=== PATIENT | male | born 1940 | race Caucasian/White ===

== ENCOUNTER → 2017-06-06 | Outpatient (CLI) | payer MEDICARE ==
[2017-06-06 08:51] LABS: BASO % 0.3 % (0.0-1.0); BILIRUBIN NEGATIVE (NEGATIVE); BLOOD NEGATIVE (NEGATIVE); CLARITY CLEAR (CLEAR); COLOR YELLOW (YELLOW); EOS # 0.1 10*3/uL (0.0-0.4); EOS % 1.3 % (1.0-4.0); GLUCOSE NEGATIVE (NEGATIVE); HEMATOCRIT 50.7 % (42.0-52.0); HEMOGLOBIN 16.7 g/dl (14.0-18.0); KETONE NEGATIVE (NEGATIVE); LEUKO ESTERASE NEGATIVE (NEGATIVE); LYMPH # 1.4 10*3/uL (1.3-4.4); LYMPH % 19.3 % (27.0-41.0); MEAN CELL VOLUME 81.3 fl (80.0-94.0); MEAN CORPUSCULAR HGB 26.8 pg (27.0-31.0); MEAN CORPUSCULAR HGB CONC 32.9 g/dl (33.0-37.0); MEAN PLATELET VOLUME 9.3 fl (9.6-12.3); MONO # 0.6 10*3/uL (0.1-1.0); MONO % 8.7 % (3.0-9.0); NEUT % 70.1 % (47.0-73.0); NITRITE NEGATIVE (NEGATIVE); PH 6.5 (5.0-9.0); PLATELET COUNT AUTOMATED 169 10*3/uL (130-400); RED BLOOD COUNT 6.24 10*6/uL (4.50-5.90); RED CELL DISTRI WIDTH 13.2 % (0-14.5); SPECIFIC GRAVITY <= 1.005 (1.005-1.030); UROBILINOGEN 0.2 E.U./dl (0.2-1.0); WHITE BLOOD COUNT 7.1 10*3/uL (4.8-10.8)
[2017-06-06 09:18] LABS: YEAST TRACE
[2017-06-06 09:19] LABS: ALBUMIN 3.9 gm/dl (3.1-4.5); CREATININE 1.63 mg/dL (0.70-1.30); MAGNESIUM 2.6 mg/dL (1.5-2.1); POTASSIUM 4.3 mmol/L (3.5-5.1); TOTAL PROTEIN 7.6 gm/dL (6.4-8.2); URIC ACID 6.6 mg/dL (3.5-7.2)
[2017-06-06 09:24] LABS: THYROID STIM HORMONE (HS) 2.02 uIU/ml (0.358-4.75)
[2017-06-06 09:27] LABS: PTH INTACT 103.4 pg/mL (14.0-72.0); VITAMIN D, 25-HYDROXY 43.3 ng/mL (30-100)
[2017-06-07 10:08] LABS: CREATININE,URINE 45.5 mg/dL (Not Estab.); MICRO ALBUMIN/CRE RATIO 216.9 (0.0-30.0)
== END | disposition home or self-care (01) ==
LOC: LAB 07:59
PROVIDERS: Internal Medicine
DX: I10 Essential (primary) hypertension (principal); N40.0 Benign prostatic hyperplasia without lower urinary tract symptoms; N17.9 Acute kidney failure, unspecified; E55.9 Vitamin D deficiency, unspecified; Z79.899 Other long term (current) drug therapy

== ENCOUNTER → 2018-04-03 | Outpatient (CLI) | payer MEDICARE ==
[2018-04-03 09:48] LABS: BILIRUBIN NEGATIVE (NEGATIVE); BLOOD NEGATIVE (NEGATIVE); CLARITY CLEAR (CLEAR); COLOR YELLOW (YELLOW); GLUCOSE NEGATIVE (NEGATIVE); KETONE NEGATIVE (NEGATIVE); LEUKO ESTERASE NEGATIVE (NEGATIVE); NITRITE NEGATIVE (NEGATIVE); SPECIFIC GRAVITY <= 1.005 (1.005-1.030); UROBILINOGEN 0.2 E.U./dl (0.2-1.0)
[2018-04-03 09:52] LABS: BASO % 0.3 % (0.0-1.0); EOS # 0.1 10*3/uL (0.0-0.4); EOS % 1.7 % (1.0-4.0); HEMATOCRIT 49.4 % (42.0-52.0); HEMOGLOBIN 15.7 g/dl (14.0-18.0); LYMPH # 1.6 10*3/uL (1.3-4.4); LYMPH % 22.3 % (27.0-41.0); MEAN CELL VOLUME 83.2 fl (80.0-94.0); MEAN CORPUSCULAR HGB 26.4 pg (27.0-31.0); MEAN CORPUSCULAR HGB CONC 31.8 g/dl (33.0-37.0); MEAN PLATELET VOLUME 9.2 fl (9.6-12.3); MONO # 0.8 10*3/uL (0.1-1.0); MONO % 10.9 % (3.0-9.0); NEUT # 4.6 10*3/uL (2.3-7.9); NEUT % 64.5 % (47.0-73.0); PLATELET COUNT AUTOMATED 182 10*3/uL (130-400); RED BLOOD COUNT 5.94 10*6/uL (4.50-5.90); RED CELL DISTRI WIDTH 13.1 % (0-14.5); WHITE BLOOD COUNT 7.1 10*3/uL (4.8-10.8)
[2018-04-03 09:57] LABS: WBC 0-2 wbc/hpf (0-5)
[2018-04-03 10:23] LABS: POTASSIUM 4.6 mmol/L (3.5-5.1)
[2018-04-03 10:32] LABS: ALBUMIN 3.9 gm/dl (3.1-4.5); CREATININE 1.74 mg/dL (0.70-1.30); PHOSPHOROUS 3.3 mg/dL (2.5-4.9); THYROID STIM HORMONE (HS) 2.38 uIU/ml (0.358-4.75); TOTAL PROTEIN 7.7 gm/dL (6.4-8.2); URIC ACID 7.1 mg/dL (3.5-7.2)
[2018-04-03 10:42] LABS: VITAMIN D, 25-HYDROXY 35.7 ng/mL (30-100)
[2018-04-03 10:43] LABS: PTH INTACT 96.7 pg/mL (18.5-88.0)
== END | disposition home or self-care (01) ==
LOC: LAB 08:13
PROVIDERS: Internal Medicine
DX: Z12.5 Encounter for screening for malignant neoplasm of prostate (principal); I12.9 Hypertensive chronic kidney disease with stage 1 through stage 4 chronic kidney disease, or unspecified chronic kidney disease; N18.3 Chronic kidney disease, stage 3 (moderate); R79.89 Other specified abnormal findings of blood chemistry; E21.2 Other hyperparathyroidism; E55.9 Vitamin D deficiency, unspecified; N40.0 Benign prostatic hyperplasia without lower urinary tract symptoms; N17.9 Acute kidney failure, unspecified

== ENCOUNTER → 2020-05-19 | Outpatient (CLI) | payer MEDICARE ==
[2020-05-19 08:45] LABS: BASO % 0.3 % (0.0-1.0); EOS # 0.1 10*3/uL (0.0-0.4); HEMATOCRIT 44.6 % (42.0-52.0); LYMPH # 1.2 10*3/uL (1.3-4.4); LYMPH % 18.8 % (27.0-41.0); MEAN CELL VOLUME 80.7 fl (80.0-94.0); MEAN CORPUSCULAR HGB 25.9 pg (27.0-31.0); MEAN CORPUSCULAR HGB CONC 32.1 g/dl (33.0-37.0); MEAN PLATELET VOLUME 9.1 fl (9.6-12.3); MONO # 0.6 10*3/uL (0.1-1.0); NEUT # 4.6 10*3/uL (2.3-7.9); NEUT % 69.6 % (47.0-73.0); PLATELET COUNT AUTOMATED 179 10*3/uL (130-400); RED BLOOD COUNT 5.53 10*6/uL (4.50-5.90); WHITE BLOOD COUNT 6.5 10*3/uL (4.8-10.8)
[2020-05-19 08:58] LABS: BILIRUBIN NEGATIVE; BLOOD NEGATIVE (NEGATIVE); CLARITY CLEAR (CLEAR); COLOR STRAW (YELLOW); GLUCOSE NEGATIVE; KETONE NEGATIVE; LEUKO ESTERASE NEGATIVE (NEGATIVE); NITRITE NEGATIVE (NEGATIVE); PH 6.5 (5.0-9.0); SPECIFIC GRAVITY 1.005 (1.005-1.030); UROBILINOGEN 0.2 E.U./dl (0.2-1.0)
[2020-05-19 09:08] LABS: RBC 0-2 rbc/hpf (0-2)
[2020-05-19 09:13] LABS: ALBUMIN 3.6 gm/dl (3.1-4.5); POTASSIUM 4.2 mmol/L (3.5-5.1); URIC ACID 8.3 mg/dL (3.5-7.2)
[2020-05-19 09:20] LABS: CREATININE 2.45 mg/dL (0.70-1.30); FREE T4 1.1 ng/dl (0.76-1.46); THYROID STIM HORMONE (HS) 2.77 uIU/ml (0.358-4.75); TOTAL PROTEIN 7.3 gm/dL (6.4-8.2)
[2020-05-19 10:31] LABS: VITAMIN D, 25-HYDROXY 43.5 ng/mL (30-100)
== END | disposition home or self-care (01) ==
LOC: LAB 08:09
PROVIDERS: Internal Medicine
DX: Z12.5 Encounter for screening for malignant neoplasm of prostate (principal); I12.9 Hypertensive chronic kidney disease with stage 1 through stage 4 chronic kidney disease, or unspecified chronic kidney disease; N18.3 Chronic kidney disease, stage 3 (moderate); E21.2 Other hyperparathyroidism; E55.9 Vitamin D deficiency, unspecified; N40.0 Benign prostatic hyperplasia without lower urinary tract symptoms; R79.89 Other specified abnormal findings of blood chemistry; Z00.00 Encounter for general adult medical examination without abnormal findings

== ENCOUNTER → 2020-07-28 | Outpatient (CLI) | payer MEDICARE ==
[2020-07-28 09:02] LABS: BILIRUBIN Negative (Negative); BLOOD Negative (Negative); CLARITY Clear (Clear); COLOR Yellow (Yellow); GLUCOSE Negative (Negative); KETONE Negative (Negative); LEUKO ESTERASE Negative (Negative); NITRITE Negative (Negative); PH 5.5 (4.5-8.0); UROBILINOGEN 0.2 E.U./dl (0.0-1.0)
[2020-07-28 09:23] LABS: BASO % 0.4 % (0.0-1.0); EOS # 0.1 10*3/uL (0.0-0.4); EOS % 1.6 % (1.0-4.0); HEMATOCRIT 43.7 % (42.0-52.0); LYMPH # 1.2 10*3/uL (1.3-4.4); LYMPH % 16.5 % (27.0-41.0); MEAN CELL VOLUME 81.4 fl (80.0-94.0); MEAN CORPUSCULAR HGB 25.9 pg (27.0-31.0); MEAN CORPUSCULAR HGB CONC 31.8 g/dl (33.0-37.0); MONO # 0.7 10*3/uL (0.1-1.0); MONO % 10.1 % (3.0-9.0); NEUT # 4.9 10*3/uL (2.3-7.9); PLATELET COUNT AUTOMATED 184 10*3/uL (130-400); RED BLOOD COUNT 5.37 10*6/uL (4.50-5.90); RED CELL DISTRI WIDTH 13.2 % (0-14.5)
[2020-07-28 09:36] LABS: ALBUMIN 3.6 gm/dl (3.1-4.5); POTASSIUM 3.9 mmol/L (3.5-5.1)
[2020-07-28 09:40] LABS: CREATININE 2.61 mg/dL (0.70-1.30); TOTAL PROTEIN 7.1 gm/dL (6.4-8.2)
[2020-07-28 09:50] LABS: EPITHELIAL CELLS 0-2; MUCOUS TRACE
== END | disposition home or self-care (01) ==
LOC: LAB 08:30
PROVIDERS: ATTEND Internal Medicine
DX: I12.9 Hypertensive chronic kidney disease with stage 1 through stage 4 chronic kidney disease, or unspecified chronic kidney disease (principal); N18.30 Chronic kidney disease, stage 3 unspecified; E55.9 Vitamin D deficiency, unspecified; E21.2 Other hyperparathyroidism; N40.0 Benign prostatic hyperplasia without lower urinary tract symptoms

== ENCOUNTER → 2020-08-08 | Outpatient (CLI) | payer MEDICARE ==
[2020-08-08 16:04] LABS: BILIRUBIN Negative (Negative); BLOOD Negative (Negative); CLARITY Clear (Clear); COLOR Yellow (Yellow); GLUCOSE Negative (Negative); KETONE Negative (Negative); LEUKO ESTERASE Negative (Negative); NITRITE Negative (Negative); PH 5.5 (4.5-8.0); UROBILINOGEN 0.2 E.U./dl (0.0-1.0)
[2020-08-08 16:18] LABS: URINE CREATININE RANDOM 42.4 mg/dL
[2020-08-08 16:22] LABS: WBC 0-2 wbc/hpf (0-5)
[2020-08-09 09:10] LABS: CREATININE,URINE 43.3 mg/dL (Not Estab.)
== END | disposition home or self-care (01) ==
LOC: LAB 14:18 → US 14:30
PROVIDERS: ATTEND Nurse Practitioner
DX: N13.30 Unspecified hydronephrosis (principal); I12.9 Hypertensive chronic kidney disease with stage 1 through stage 4 chronic kidney disease, or unspecified chronic kidney disease; N18.30 Chronic kidney disease, stage 3 unspecified; E55.9 Vitamin D deficiency, unspecified; N40.0 Benign prostatic hyperplasia without lower urinary tract symptoms; E21.2 Other hyperparathyroidism

== ENCOUNTER → 2020-11-21 | Outpatient (CLI) | payer MEDICARE ==
[2020-11-21 08:41] LABS: BILIRUBIN Negative (Negative); BLOOD Negative (Negative); CLARITY Clear (Clear); COLOR Yellow (Yellow); GLUCOSE Negative (Negative); KETONE Negative (Negative); LEUKO ESTERASE Negative (Negative); NITRITE Negative (Negative); UROBILINOGEN 0.2 E.U./dl (0.0-1.0)
[2020-11-21 09:05] LABS: CREATININE 2.81 mg/dL (0.70-1.30); POTASSIUM 4.1 mmol/L (3.5-5.1)
[2020-11-21 09:10] LABS: EPITHELIAL CELLS 0-2; RBC 0-2 rbc/hpf (0-2)
[2020-11-22 11:08] LABS: CREATININE,URINE 31.3 mg/dL (Not Estab.)
== END | disposition home or self-care (01) ==
LOC: LAB 08:12
PROVIDERS: ATTEND Registered Nurse
DX: I12.9 Hypertensive chronic kidney disease with stage 1 through stage 4 chronic kidney disease, or unspecified chronic kidney disease (principal); N18.32 Chronic kidney disease, stage 3b; E55.9 Vitamin D deficiency, unspecified; N17.9 Acute kidney failure, unspecified; E21.2 Other hyperparathyroidism; N40.0 Benign prostatic hyperplasia without lower urinary tract symptoms; R33.9 Retention of urine, unspecified

== ENCOUNTER 2021-05-30 15:01 | Emergency (ER) | payer MEDICARE ==
[~2021-05-30] VITALS: Ht 182.8 cm; Wt 79.8 kg
== END 2021-05-30 15:56 | disposition home or self-care (01) ==
LOC: ED 15:01
DX: S61.411A Laceration without foreign body of right hand, initial encounter (principal); W22.8XXA Striking against or struck by other objects, initial encounter; Y93.89 Activity, other specified; Y92.89 Other specified places as the place of occurrence of the external cause; Y99.8 Other external cause status

== ENCOUNTER → 2021-06-12 | Outpatient (CLI) | payer MEDICARE | LOC: WOUNDCARE 01:07 | PROVIDERS: ATTEND Nurse Practitioner | DX: S61.411A Laceration without foreign body of right hand, initial encounter (principal); W28.XXXA Contact with powered lawn mower, initial encounter; Y93.89 Activity, other specified; Y92.89 Other specified places as the place of occurrence of the external cause; Y99.8 Other external cause status ==

== ENCOUNTER → 2021-06-18 | Outpatient (CLI) | payer MEDICARE ==
[2021-06-18 09:15] LABS: BASO % 0.2 % (0.0-1.0); EOS # 0.2 10*3/uL (0.0-0.4); HEMATOCRIT 37.7 % (42.0-52.0); LYMPH # 1.2 10*3/uL (1.3-4.4); LYMPH % 14.4 % (27.0-41.0); MEAN CELL VOLUME 80.2 fl (80.0-94.0); MEAN CORPUSCULAR HGB 25.5 pg (27.0-31.0); MEAN CORPUSCULAR HGB CONC 31.8 g/dl (33.0-37.0); MONO # 0.7 10*3/uL (0.1-1.0); MONO % 8.5 % (3.0-9.0); NEUT % 74.4 % (47.0-73.0); PLATELET COUNT AUTOMATED 249 10*3/uL (130-400); RED CELL DISTRI WIDTH 13.2 % (0-14.5); WHITE BLOOD COUNT 8.1 10*3/uL (4.8-10.8)
[2021-06-18 09:25] LABS: BILIRUBIN Negative (Negative); BLOOD Trace-Lysed (Negative); CLARITY Cloudy (Clear); COLOR Yellow (Yellow); GLUCOSE Negative (Negative); KETONE Negative (Negative); LEUKO ESTERASE 3+ (Negative); NITRITE Negative (Negative); PH 6.5 (4.5-8.0); SPECIFIC GRAVITY <= 1.005 (1.001-1.030); UROBILINOGEN 0.2 E.U./dl (0.0-1.0)
[2021-06-18 09:38] LABS: CREATININE 3.6 mg/dL (0.70-1.30); POTASSIUM 3.8 mmol/L (3.5-5.1)
[2021-06-18 10:37] LABS: PTH INTACT 157.8 pg/mL (18.5-88.0); VITAMIN D, 25-HYDROXY 47.6 ng/mL (30-100)
[2021-06-18 11:22] LABS: WBC TNTC wbc/hpf (0-5)
[2021-06-18 11:24] LABS: BACTERIA 4+
[2021-06-19 10:07] LABS: CREATININE,URINE 24.6 mg/dL (Not Estab.)
== END | disposition home or self-care (01) ==
LOC: LAB 08:44
PROVIDERS: ATTEND Registered Nurse
DX: I12.9 Hypertensive chronic kidney disease with stage 1 through stage 4 chronic kidney disease, or unspecified chronic kidney disease (principal); N18.32 Chronic kidney disease, stage 3b; E55.9 Vitamin D deficiency, unspecified; E21.2 Other hyperparathyroidism; N40.0 Benign prostatic hyperplasia without lower urinary tract symptoms; R33.9 Retention of urine, unspecified; N17.9 Acute kidney failure, unspecified

== ENCOUNTER → 2021-06-29 | Outpatient (CLI) | payer MEDICARE ==
[2021-06-29 09:29] LABS: CREATININE 3.54 mg/dL (0.70-1.30)
== END | disposition home or self-care (01) ==
LOC: LAB 08:54
PROVIDERS: ATTEND Internal Medicine
DX: N18.30 Chronic kidney disease, stage 3 unspecified (principal)

== ENCOUNTER 2021-10-13 14:06 | Inpatient (IN) | payer MEDICARE ==
[~2021-10-13] VITALS: Ht 185.4 cm; Wt 80.5 kg
[~2021-10-13 14:06] MED LIST: AMLODIPINE BESYL5 MG PO; ASPIRIN ADULT L81 M1 PO; CALCIUM ACETAT667 MG PO; CEFUROXIME AXE250 MG PO; CENTRUM SILVER1 EAC2 PO; DOXAZOSIN MESYLA4 MG PO; FERROUS GLUCON324 MG PO; METOPROLOL SUCC25 M2 PO; MIRTAZAPINE15 M2 PO; PAPAYA ENZYME1 EACH PO; SODIUM BICARBO650 MG PO; VITAMIN C100 M3 PO
[2021-10-13 14:07] VITALS: BP 140/58
[2021-10-13 14:39] LABS: BASO % 0.1 % (0.0-1.0); EOS # 0.1 10*3/uL (0.0-0.4); HEMATOCRIT 23.5 % (42.0-52.0); LYMPH # 0.4 10*3/uL (1.3-4.4); LYMPH % 3.8 % (27.0-41.0); MEAN CELL VOLUME 78.6 fl (80.0-94.0); MEAN CORPUSCULAR HGB 26.1 pg (27.0-31.0); MEAN CORPUSCULAR HGB CONC 33.2 g/dl (33.0-37.0); MEAN PLATELET VOLUME 9.2 fl (9.6-12.3); MONO # 0.5 10*3/uL (0.1-1.0); MONO % 5.5 % (3.0-9.0); NEUT # 8.3 10*3/uL (2.3-7.9); PLATELET COUNT AUTOMATED 197 10*3/uL (130-400); RED BLOOD COUNT 2.99 10*6/uL (4.50-5.90); WHITE BLOOD COUNT 9.3 10*3/uL (4.8-10.8)
[2021-10-13 14:55] LABS: ALBUMIN 2.1 gm/dl (3.1-4.5); CREATININE 6.16 mg/dL (0.70-1.30); POTASSIUM 4.8 mmol/L (3.5-5.1); TOTAL PROTEIN 5.8 gm/dL (6.4-8.2)
[2021-10-13 17:28] LABS: BILIRUBIN Negative (Negative); BLOOD Negative (Negative); CLARITY Clear (Clear); COLOR Yellow (Yellow); GLUCOSE Negative (Negative); KETONE Negative (Negative); LEUKO ESTERASE Negative (Negative); NITRITE Negative (Negative); PH 5.5 (4.5-8.0); SPECIFIC GRAVITY 1.015 (1.001-1.030); UROBILINOGEN 0.2 E.U./dl (0.0-1.0)
[2021-10-13 17:42] LABS: BACTERIA TRACE; EPITHELIAL CELLS 0-2; RBC 0-2 rbc/hpf (0-2)
[2021-10-13 17:46] VITALS: BP 167/68
[2021-10-13 20:00] VITALS: BP 171/63
[2021-10-13 21:07] VITALS: BP 154/53
[2021-10-14] VITALS (13 sets, daily range): BP systolic 101–181; BP diastolic 50–71
[2021-10-15] VITALS: BP 164/58
[2021-10-15 08:00] VITALS: BP 167/60
[2021-10-15 08:47] LABS: HEMATOCRIT 22.8 % (42.0-52.0); MEAN CELL VOLUME 80.3 fl (80.0-94.0); MEAN CORPUSCULAR HGB 26.1 pg (27.0-31.0); MEAN CORPUSCULAR HGB CONC 32.5 g/dl (33.0-37.0); MEAN PLATELET VOLUME 9.5 fl (9.6-12.3); PLATELET COUNT AUTOMATED 203 10*3/uL (130-400); RED BLOOD COUNT 2.84 10*6/uL (4.50-5.90); RED CELL DISTRI WIDTH 13.9 % (0-14.5); WHITE BLOOD COUNT 9.4 10*3/uL (4.8-10.8)
[2021-10-15 08:50] VITALS: BP 199/64
[2021-10-15 09:05] LABS: CREATININE 5.39 mg/dL (0.70-1.30)
[2021-10-15 09:13] LABS: BURR CELLS FEW; OVALOCYTES FEW; PLATELET SUFFICIENCY NORMAL (NORMAL); SCHISTOCYTES FEW; TOTAL CELLS COUNTED 100 #CELLS
[2021-10-15 09:14] LABS: TOXIC GRANULATION SLIGHT
[2021-10-15 12:00] VITALS: BP 158/54
[2021-10-15 16:00] VITALS: BP 157/52
[2021-10-15 20:00] VITALS: BP 152/62
[2021-10-16] VITALS (7 sets, daily range): BP systolic 142–197; BP diastolic 56–81
[2021-10-16 06:20] LABS: HEMATOCRIT 21.2 % (42.0-52.0); MEAN CELL VOLUME 81.2 fl (80.0-94.0); MEAN CORPUSCULAR HGB 25.3 pg (27.0-31.0); MEAN CORPUSCULAR HGB CONC 31.1 g/dl (33.0-37.0); MEAN PLATELET VOLUME 9.2 fl (9.6-12.3); PLATELET COUNT AUTOMATED 178 10*3/uL (130-400); RED BLOOD COUNT 2.61 10*6/uL (4.50-5.90); WHITE BLOOD COUNT 8.3 10*3/uL (4.8-10.8)
[2021-10-16 06:31] LABS: CREATININE 4.09 mg/dL (0.70-1.30); POTASSIUM 3.9 mmol/L (3.5-5.1)
[2021-10-16 07:33] LABS: PLATELET SUFFICIENCY NORMAL (NORMAL); POLYCHROMASIA SLIGHT; TOTAL CELLS COUNTED 100 #CELLS
[2021-10-17] VITALS: BP 152/60
[2021-10-17 06:46] LABS: BASO % 0.2 % (0.0-1.0); EOS # 0.3 10*3/uL (0.0-0.4); EOS % 3.4 % (1.0-4.0); LYMPH # 0.6 10*3/uL (1.3-4.4); LYMPH % 6.4 % (27.0-41.0); MEAN CELL VOLUME 82.8 fl (80.0-94.0); MEAN CORPUSCULAR HGB 25.9 pg (27.0-31.0); MEAN CORPUSCULAR HGB CONC 31.3 g/dl (33.0-37.0); MONO # 0.7 10*3/uL (0.1-1.0); MONO % 7.8 % (3.0-9.0); NEUT % 80.5 % (47.0-73.0); PLATELET COUNT AUTOMATED 160 10*3/uL (130-400); RED CELL DISTRI WIDTH 14.2 % (0-14.5); WHITE BLOOD COUNT 8.6 10*3/uL (4.8-10.8)
[2021-10-17 07:03] LABS: CREATININE 3.27 mg/dL (0.70-1.30); POTASSIUM 3.7 mmol/L (3.5-5.1)
[2021-10-17 08:00] VITALS: BP 153/56
[2021-10-17 12:00] VITALS: BP 113/60
[2021-10-17 16:00] VITALS: BP 137/56
[2021-10-17 20:00] VITALS: BP 143/63
[2021-10-18] VITALS: BP 166/54
[2021-10-18 07:00] LABS: HEMATOCRIT 24.5 % (42.0-52.0); MEAN CELL VOLUME 82.8 fl (80.0-94.0); MEAN CORPUSCULAR HGB 25.7 pg (27.0-31.0); MEAN PLATELET VOLUME 9.2 fl (9.6-12.3); PLATELET COUNT AUTOMATED 170 10*3/uL (130-400); RED BLOOD COUNT 2.96 10*6/uL (4.50-5.90); RED CELL DISTRI WIDTH 14.1 % (0-14.5); WHITE BLOOD COUNT 9.9 10*3/uL (4.8-10.8)
[2021-10-18 07:18] LABS: CREATININE 4.26 mg/dL (0.70-1.30); POTASSIUM 3.7 mmol/L (3.5-5.1)
[2021-10-18 07:48] LABS: TOTAL CELLS COUNTED 100 #CELLS
[2021-10-18 07:49] LABS: ACANTHOCYTES FEW; OVALOCYTES FEW; PLATELET SUFFICIENCY NORMAL (NORMAL); POLYCHROMASIA SLIGHT; SCHISTOCYTES FEW
[2021-10-18 08:00] VITALS: BP 169/56
[2021-10-18 12:00] VITALS: BP 144/37
[2021-10-18 16:00] VITALS: BP 157/63
[2021-10-18 20:00] VITALS: BP 163/56
[2021-10-19] VITALS: BP 166/61
[2021-10-19 08:09] LABS: BASO % 0.4 % (0.0-1.0); EOS # 0.5 10*3/uL (0.0-0.4); EOS % 4.8 % (1.0-4.0); HEMATOCRIT 26.2 % (42.0-52.0); LYMPH # 0.5 10*3/uL (1.3-4.4); LYMPH % 5.2 % (27.0-41.0); MEAN CELL VOLUME 84.2 fl (80.0-94.0); MEAN CORPUSCULAR HGB 26.4 pg (27.0-31.0); MEAN CORPUSCULAR HGB CONC 31.3 g/dl (33.0-37.0); MEAN PLATELET VOLUME 8.9 fl (9.6-12.3); MONO # 0.6 10*3/uL (0.1-1.0); MONO % 6.6 % (3.0-9.0); NEUT # 7.8 10*3/uL (2.3-7.9); PLATELET COUNT AUTOMATED 140 10*3/uL (130-400); RED BLOOD COUNT 3.11 10*6/uL (4.50-5.90); RED CELL DISTRI WIDTH 14.1 % (0-14.5); WHITE BLOOD COUNT 9.7 10*3/uL (4.8-10.8)
[2021-10-19 08:23] LABS: CREATININE 5.24 mg/dL (0.70-1.30)
[2021-10-19 08:34] LABS: POTASSIUM 3.6 mmol/L (3.5-5.1)
[2021-10-19] MEDS ORDERED: MIRTAZAPINE15 M2 PO (09:08)
[2021-10-19 12:00] VITALS: BP 182/61
== END 2021-10-19 16:30 | DRG 291 ==
LOC: ED 14:06 → EDHOLD 16:55 → 5E 16:55
PROVIDERS: Internal Medicine Nephrology; Nurse Practitioner Family; ADMIT Internal Medicine; ATTEND Internal Medicine
PROC: 0JH63XZ Insertion of Tunneled Vascular Access Device into Chest Subcutaneous Tissue and Fascia, Percutaneous Approach (ICD-10-PCS; 2021-10-14)
PROC: 02HV33Z Insertion of Infusion Device into Superior Vena Cava, Percutaneous Approach (ICD-10-PCS; 2021-10-14)
PROC: B5181ZA Fluoroscopy of Superior Vena Cava using Low Osmolar Contrast, Guidance (ICD-10-PCS; 2021-10-14)
PROC: B548ZZA Ultrasonography of Superior Vena Cava, Guidance (ICD-10-PCS; 2021-10-14)
PROC: 30233N1 Transfusion of Nonautologous Red Blood Cells into Peripheral Vein, Percutaneous Approach (ICD-10-PCS; principal; 2021-10-16)
DX: I13.2 Hypertensive heart and chronic kidney disease with heart failure and with stage 5 chronic kidney disease, or end stage renal disease (principal); I50.31 Acute diastolic (congestive) heart failure; N18.6 End stage renal disease; N17.9 Acute kidney failure, unspecified; E87.1 Hypo-osmolality and hyponatremia; F33.0 Major depressive disorder, recurrent, mild; E44.1 Mild protein-calorie malnutrition; N04.9 Nephrotic syndrome with unspecified morphologic changes; R33.8 Other retention of urine; Z20.822 Contact with and (suspected) exposure to COVID-19; R62.7 Adult failure to thrive; E83.39 Other disorders of phosphorus metabolism; D50.9 Iron deficiency anemia, unspecified; Z99.2 Dependence on renal dialysis; Z88.8 Allergy status to other drugs, medicaments and biological substances; Z79.899 Other long term (current) drug therapy; Z68.24 Body mass index [BMI] 24.0-24.9, adult

== ENCOUNTER → 2022-06-15 | Outpatient (CLI) | payer MEDICARE | END | disposition home or self-care (01) | LOC: RESCLI 00:21 | PROVIDERS: ATTEND Internal Medicine | DX: E83.39 Other disorders of phosphorus metabolism (principal); I10 Essential (primary) hypertension; Z79.82 Long term (current) use of aspirin; Z79.899 Other long term (current) drug therapy ==

== ENCOUNTER → 2023-02-03 | Outpatient (CLI) | payer MEDICARE | END | disposition home or self-care (01) | LOC: LAB 09:58 | PROVIDERS: ATTEND Internal Medicine Nephrology | DX: J98.4 Other disorders of lung (principal); E87.70 Fluid overload, unspecified; R06.02 Shortness of breath ==

== ENCOUNTER → 2023-03-08 | Outpatient (CLI) | payer MEDICARE | END | disposition home or self-care (01) | LOC: CARD 11:27 | PROVIDERS: ATTEND Internal Medicine | DX: I08.0 Rheumatic disorders of both mitral and aortic valves (principal) ==

== ENCOUNTER → 2023-09-09 | Outpatient (CLI) | payer MEDICARE ==
[2023-09-09 10:06] LABS: BILIRUBIN Negative (Negative); BLOOD 2+ (Negative); CLARITY Turbid (Clear); COLOR Yellow (Yellow); GLUCOSE Negative (Negative); KETONE Negative (Negative); LEUKO ESTERASE 3+ (Negative); NITRITE Negative (Negative); PH 6.5 (4.5-8.0); SPECIFIC GRAVITY 1.015 (1.001-1.030); UROBILINOGEN 0.2 E.U./dl (0.0-1.0)
[2023-09-09 10:26] LABS: WBC TNTC wbc/hpf (0-5)
== END | disposition home or self-care (01) ==
LOC: LAB 09:41
PROVIDERS: ATTEND Internal Medicine Nephrology
DX: N30.00 Acute cystitis without hematuria (principal)

== ENCOUNTER → 2023-10-11 | Outpatient (CLI) | payer MEDICARE | END | disposition home or self-care (01) | LOC: RESCLI 05:21 | PROVIDERS: ATTEND Internal Medicine | DX: I12.0 Hypertensive chronic kidney disease with stage 5 chronic kidney disease or end stage renal disease (principal); N18.6 End stage renal disease; E83.39 Other disorders of phosphorus metabolism; E63.9 Nutritional deficiency, unspecified; N40.0 Benign prostatic hyperplasia without lower urinary tract symptoms; G47.00 Insomnia, unspecified; Z98.890 Other specified postprocedural states; Z79.82 Long term (current) use of aspirin; Z79.899 Other long term (current) drug therapy ==

== ENCOUNTER → 2024-04-17 | Outpatient (CLI) | payer MEDICARE ==
[~2024-04-17] MED LIST changes: +OCUVITE ADULT1 EAC3 PO; +RENA-VITE RX T1 EACH PO; +RENVELA800 MG PO; +TRAZODONE50 MG PO; +TYLENOL EXTRA500 MG PO
== END | disposition home or self-care (01) ==
LOC: CARD 07:55
PROVIDERS: ATTEND Internal Medicine Cardiovascular Disease
DX: I08.3 Combined rheumatic disorders of mitral, aortic and tricuspid valves (principal); I10 Essential (primary) hypertension; R01.1 Cardiac murmur, unspecified; I70.203 Unspecified atherosclerosis of native arteries of extremities, bilateral legs; R00.1 Bradycardia, unspecified

== ENCOUNTER 2024-07-04 09:54 | Inpatient (IN) | payer MEDICARE ==
[~2024-07-04] VITALS: Ht 152.4 cm; Wt 65.9 kg
[2024-07-04 10:03] VITALS: BP 175/50
[2024-07-04] MEDS ORDERED: NORVASC10 MG PO (10:14)
[2024-07-04] MEDS ORDERED: MORPHINE Sulfate 2 MG/ML SYR IM ONE (11:35)
[2024-07-04 11:57] LABS: BASO % 0.2 % (0.0-1.0); EOS # 0.1 10*3/uL (0.0-0.4); EOS % 0.4 % (1.0-4.0); HEMATOCRIT 36.6 % (42.0-52.0); LYMPH # 0.7 10*3/uL (1.3-4.4); LYMPH % 6.2 % (27.0-41.0); MEAN CELL VOLUME 87.8 fl (80.0-94.0); MEAN CORPUSCULAR HGB 27.6 pg (27.0-31.0); MEAN CORPUSCULAR HGB CONC 31.4 g/dl (33.0-37.0); MEAN PLATELET VOLUME 9.1 fl (9.6-12.3); MONO # 0.7 10*3/uL (0.1-1.0); MONO % 5.7 % (3.0-9.0); NEUT # 10.4 10*3/uL (2.3-7.9); NEUT % 86.9 % (47.0-73.0); PLATELET COUNT AUTOMATED 73 10*3/uL (130-400); RED BLOOD COUNT 4.17 10*6/uL (4.50-5.90); RED CELL DISTRI WIDTH 14.3 % (0-14.5); WHITE BLOOD COUNT 11.9 10*3/uL (4.8-10.8)
[2024-07-04 12:08] LABS: ACT PARTIAL THROMBO TIME 51.8 SECONDS (20.0-32.1)
[2024-07-04 12:20] LABS: TOTAL PROTEIN 6.2 gm/dL (6.0-8.0)
[2024-07-04 14:24] VITALS: BP 190/46
[2024-07-04] MEDS ORDERED: HYDROmorphONE Hydrochloride 0.5 MG/0.5 ML SYRINGE IV PRN (14:30)
[2024-07-04] MEDS ORDERED: Sevelamer Hydrochloride 800 MG TAB PO SCH (17:00)
[2024-07-04 20:00] VITALS: BP 162/40
[2024-07-05] VITALS (11 sets, daily range): BP systolic 108–181; BP diastolic 40–66
[2024-07-05] MEDS ORDERED: Melatonin 5 MG TABLET PO ONE (00:25)
[2024-07-05] MEDS ORDERED: HYDROmorphONE Hydrochloride 0.5 MG/0.5 ML SYRINGE IV ONE (00:30)
[2024-07-05 05:08] LABS: BILIRUBIN Negative (Negative); BLOOD Negative (Negative); CLARITY Cloudy (Clear); COLOR Yellow (Yellow); GLUCOSE Negative (Negative); KETONE Negative (Negative); LEUKO ESTERASE 2+ (Negative); NITRITE Negative (Negative); SPECIFIC GRAVITY 1.015 (1.001-1.030); UROBILINOGEN 0.2 E.U./dl (0.0-1.0)
[2024-07-05 05:11] LABS: PH 8.5 (4.5-8.0)
[2024-07-05 05:15] LABS: BACTERIA TRACE; RBC 0-2 rbc/hpf (0-2); WBC TNTC wbc/hpf (0-5)
[2024-07-05 06:36] LABS: BASO % 0.2 % (0.0-1.0); EOS % 0.3 % (1.0-4.0); HEMATOCRIT 34.5 % (42.0-52.0); LYMPH # 0.8 10*3/uL (1.3-4.4); MEAN CELL VOLUME 86.7 fl (80.0-94.0); MEAN CORPUSCULAR HGB 27.4 pg (27.0-31.0); MEAN CORPUSCULAR HGB CONC 31.6 g/dl (33.0-37.0); MEAN PLATELET VOLUME 9.4 fl (9.6-12.3); MONO # 0.8 10*3/uL (0.1-1.0); MONO % 7.9 % (3.0-9.0); NEUT % 83.1 % (47.0-73.0); PLATELET COUNT AUTOMATED 73 10*3/uL (130-400); RED BLOOD COUNT 3.98 10*6/uL (4.50-5.90); RED CELL DISTRI WIDTH 14.6 % (0-14.5); WHITE BLOOD COUNT 9.7 10*3/uL (4.8-10.8)
[2024-07-05 07:15] LABS: POTASSIUM 6.2 mmol/L (3.4-5.1)
[2024-07-05] MEDS ORDERED: HEPARIN SODIUM 10,000 UN/10 ML VIAL IV ONE (08:44)
[2024-07-05] MEDS ORDERED: amLODIPine besylate 10 MG TAB PO SCH (10:00)
[2024-07-05] MEDS ORDERED: ASCORBIC ACID 500 MG TAB PO SCH (10:00)
[2024-07-05] MEDS ORDERED: Cholecalciferol 2,000 UNIT TABLET (50 MCG) PO SCH (10:00)
[2024-07-05] MEDS ORDERED: SODIUM CHLORIDE 0.9% 1,000 ML IV SCH (11:00)
[2024-07-05] MEDS ORDERED: SODIUM CHLORIDE 0.9% 1,000 ML IV ONE (11:05)
[2024-07-05 11:16] LABS: POTASSIUM 4.5 mmol/L (3.4-5.1)
[2024-07-05] MEDS ORDERED: TRANEXAMIC ACID IN NACL,ISO-OS 100 ML IV ONE ×2 (11:19→13:00)
[2024-07-05] MEDS ORDERED: ceFAZolin sodium/sodium chlor 10 ML IV ONE (11:20)
[2024-07-05] MEDS ORDERED: ACETAMINOPHEN 100 ML IV ONE (11:48)
[2024-07-05] MEDS ORDERED: Ropivacaine Hydrochloride 5 MG/ML 20 ML AMP IJ ONE (11:48)
[2024-07-05] MEDS ORDERED: Bupivacaine Hydrochloride/Ep2 30 ML VIAL ONE (12:18)
[2024-07-05] MEDS ORDERED: ceFAZolin sodium 1GM/10ML IV ONE (13:00)
[2024-07-05] MEDS ORDERED: Succinylcholine Chloride 200 MG/10 ML SYRINGE IV ONE (15:11)
[2024-07-05] MEDS ORDERED: Dexamethasone Sodium Phospha 20 MG/5 ML VIAL IV ONE (15:11)
[2024-07-05] MEDS ORDERED: PROPOFOL 200 MG/20 ML VIAL IV ONE (15:11)
[2024-07-05] MEDS ORDERED: Ondansetron Hydrochloride 4 MG/2 ML VIAL IV ONE (15:11)
[2024-07-05] MEDS ORDERED: ROCURONIUM BROMIDE 50 MG/5 ML SYRINGE IV ONE (15:11)
[2024-07-05] MEDS ORDERED: SEVOFLURANE 250 ML BOT INH ONE (15:11)
[2024-07-05] MEDS ORDERED: fentaNYL CITRATE 100 MCG/2 ML VIAL IV ONE (15:11)
[2024-07-05] MEDS ORDERED: ceFAZolin sodium 1 GM in SYRINGE INFUSION 10 ML IV SCH (22:00)
[2024-07-06] VITALS: BP 178/38
[2024-07-06] MEDS ORDERED: amLODIPine besylate 10 MG TAB PO ONE (00:45)
[2024-07-06] MEDS ORDERED: Haloperidol Lactate 5 MG/ML AMP IM ONE (07:25)
[2024-07-06 08:00] VITALS: BP 174/21
[2024-07-06 12:00] VITALS: BP 147/100
[2024-07-06 13:45] LABS: BASO % 0.1 % (0.0-1.0); EOS % 0.2 % (1.0-4.0); LYMPH # 1.5 10*3/uL (1.3-4.4); LYMPH % 8.5 % (27.0-41.0); MEAN CELL VOLUME 87.6 fl (80.0-94.0); MEAN CORPUSCULAR HGB 27.8 pg (27.0-31.0); MEAN CORPUSCULAR HGB CONC 31.7 g/dl (33.0-37.0); MEAN PLATELET VOLUME 11.2 fl (9.6-12.3); MONO # 1.5 10*3/uL (0.1-1.0); MONO % 8.6 % (3.0-9.0); NEUT # 14.1 10*3/uL (2.3-7.9); NEUT % 81.7 % (47.0-73.0); PLATELET COUNT AUTOMATED 90 10*3/uL (130-400); RED BLOOD COUNT 3.31 10*6/uL (4.50-5.90); RED CELL DISTRI WIDTH 14.7 % (0-14.5); WHITE BLOOD COUNT 17.3 10*3/uL (4.8-10.8)
[2024-07-06] MEDS ORDERED: LEVETIRACETAM IN NACL (ISO-OS) 100 ML IV ONE (13:45)
[2024-07-06 14:07] LABS: ABG O2 SATURATION 89.4 % (94.0-98.0); ARTERIAL BLOOD GAS PH 7.363 (7.350-7.450); ARTERIAL BLOOD GAS PO2 62.2 mmHg (83.0-108.0)
[2024-07-06 14:08] LABS: POTASSIUM 4.9 mmol/L (3.4-5.1); TOTAL PROTEIN 5.9 gm/dL (6.0-8.0)
[2024-07-06 14:14] LABS: ABG BASE EXCESS -8.3 mmol/L (-2.0-3.0)
[2024-07-06] MEDS ORDERED: LORazepam 2 MG/ML VIAL IV ONE (14:15)
[2024-07-06] MEDS ORDERED: Water, Sterile 10 ML VIAL ONE (14:40)
[2024-07-06] MEDS ORDERED: ASPIRIN ENTERIC COATED 81 MG TAB PO SCH (18:00)
[2024-07-06 20:00] VITALS: BP 160/30
[2024-07-06] MEDS ORDERED: LEVETIRACETAM 500 MG TAB PO SCH (22:00)
[2024-07-07] VITALS: BP 160/40
[2024-07-07 12:00] VITALS: BP 154/52
[2024-07-07] MEDS ORDERED: SODIUM CHLORIDE 0.9% 1,000 ML IV SCH (17:05)
[2024-07-07] MEDS ORDERED: MANNITOL 12.5 GM/50 ML VIAL IV SCH (17:05)
[2024-07-07] MEDS ORDERED: ALBUMIN 25% 50 ML IV PRN (17:05)
[2024-07-07] MEDS ORDERED: HEPARIN SODIUM 5,000 UNIT/ML VIAL IV SCH (17:05)
[2024-07-07] MEDS ORDERED: HEPARIN SODIUM 10,000 UN/10 ML VIAL IV SCH (17:05)
[2024-07-07 20:00] VITALS: BP 157/43
[2024-07-08] VITALS: BP 164/40; BP 178/23
[2024-07-08 08:00] VITALS: BP 178/44
[2024-07-08 16:00] VITALS: BP 148/32
[2024-07-08 20:00] VITALS: BP 174/40; BP 185/35
[2024-07-08] MEDS ORDERED: cloNIDine Hydrochloride 0.1 MG TAB PO ONE (21:25)
[2024-07-09] VITALS: BP 189/34
[2024-07-09 04:00] VITALS: BP 168/38
[2024-07-09 07:04] LABS: BASO % 0.2 % (0.0-1.0); EOS # 0.2 10*3/uL (0.0-0.4); EOS % 3.6 % (1.0-4.0); HEMATOCRIT 25.6 % (42.0-52.0); LYMPH # 0.8 10*3/uL (1.3-4.4); LYMPH % 11.8 % (27.0-41.0); MEAN CELL VOLUME 87.4 fl (80.0-94.0); MEAN CORPUSCULAR HGB 27.6 pg (27.0-31.0); MEAN CORPUSCULAR HGB CONC 31.6 g/dl (33.0-37.0); MEAN PLATELET VOLUME 10.9 fl (9.6-12.3); MONO # 0.7 10*3/uL (0.1-1.0); MONO % 11.1 % (3.0-9.0); NEUT # 4.6 10*3/uL (2.3-7.9); NEUT % 72.5 % (47.0-73.0); PLATELET COUNT AUTOMATED 88 10*3/uL (130-400); RED BLOOD COUNT 2.93 10*6/uL (4.50-5.90); RED CELL DISTRI WIDTH 14.2 % (0-14.5); WHITE BLOOD COUNT 6.4 10*3/uL (4.8-10.8)
[2024-07-09 07:25] LABS: POTASSIUM 4.2 mmol/L (3.4-5.1)
[2024-07-09] MEDS ORDERED: SODIUM CHLORIDE 0.9% 1,000 ML BAG IV ONE (08:15)
[2024-07-09] MEDS ORDERED: HEPARIN SODIUM 10,000 UN/10 ML VIAL IV ONE (08:15)
[2024-07-09] MEDS ORDERED: CIPRO500 MG PO (08:31)
[2024-07-09] MEDS ORDERED: ASPIRIN ADULT L81 M2 PO (08:31)
[2024-07-09] MEDS ORDERED: LEVETIRACETAM500 MG PO (08:31)
[2024-07-09] MEDS ORDERED: CLONIDINE HCL0.1 MG PO (08:32)
[2024-07-09 12:00] VITALS: BP 172/31
== END 2024-07-09 15:12 | DRG 521 ==
LOC: ED 09:54 → EDHOLD 12:36 → 4E 12:36 → EDHOLD 12:46 → 4E 13:17
PROVIDERS: Internal Medicine; Internal Medicine Nephrology; Nurse Anesthetist, Certified Registered; Student in an Organized Health Care Education/Training Program; ADMIT Internal Medicine; ATTEND Internal Medicine
PROC: 0SRS01Z Replacement of Left Hip Joint, Femoral Surface with Metal Synthetic Substitute, Open Approach (ICD-10-PCS; principal; 2024-07-05)
PROC: 3E0T3BZ Introduction of Anesthetic Agent into Peripheral Nerves and Plexi, Percutaneous Approach (ICD-10-PCS; 2024-07-05)
PROC: 5A1D70Z Performance of Urinary Filtration, Intermittent, Less than 6 Hours Per Day (ICD-10-PCS; 2024-07-05)
PROC: 5A1D70Z Performance of Urinary Filtration, Intermittent, Less than 6 Hours Per Day (ICD-10-PCS; 2024-07-09)
DX: S72.012A Unspecified intracapsular fracture of left femur, initial encounter for closed fracture (principal); G93.41 Metabolic encephalopathy; N18.6 End stage renal disease; N39.0 Urinary tract infection, site not specified; E87.5 Hyperkalemia; G40.909 Epilepsy, unspecified, not intractable, without status epilepticus; R62.7 Adult failure to thrive; D64.9 Anemia, unspecified; L89.611 Pressure ulcer of right heel, stage 1; F51.04 Psychophysiologic insomnia; Z66 Do not resuscitate; S91.101A Unspecified open wound of right great toe without damage to nail, initial encounter; F41.1 Generalized anxiety disorder; B95.8 Unspecified staphylococcus as the cause of diseases classified elsewhere; Z88.8 Allergy status to other drugs, medicaments and biological substances; Z99.2 Dependence on renal dialysis; Z79.899 Other long term (current) drug therapy; Z79.01 Long term (current) use of anticoagulants; Z68.28 Body mass index [BMI] 28.0-28.9, adult; Z91.09 Other allergy status, other than to drugs and biological substances; Z79.2 Long term (current) use of antibiotics; W18.39XA Other fall on same level, initial encounter; Y93.89 Activity, other specified; Y92.89 Other specified places as the place of occurrence of the external cause; Y99.8 Other external cause status

== ENCOUNTER → 2024-07-23 | Outpatient (CLI) | payer MEDICARE ==
[~2024-07-23] MED LIST changes: +ASPIRIN ADULT L81 M2 PO; +CIPRO500 MG PO; +CLONIDINE HCL0.1 MG PO; +LEVETIRACETAM500 MG PO; +NORVASC10 MG PO
== END | disposition home or self-care (01) ==
LOC: ORTHO 02:31
PROVIDERS: ATTEND Orthopaedic Surgery
DX: S72.012D Unspecified intracapsular fracture of left femur, subsequent encounter for closed fracture with routine healing (principal); X58.XXXD Exposure to other specified factors, subsequent encounter

== ENCOUNTER 2024-07-28 17:10 | Inpatient (IN) | payer OTHER ==
[~2024-07-28] VITALS: Ht 180.3 cm; Wt 60.8 kg
[2024-07-28 17:15] VITALS: BP 155/33
[2024-07-28] MEDS ORDERED: MORPHINE Sulfate 2 MG/ML SYR IV PRN (17:30)
[2024-07-28] MEDS ORDERED: MORPHINE Sulfate 50 MG in SODIUM CHLORIDE 0.9% 45 ML IV SCH (18:30)
[2024-07-28] MEDS ORDERED: LORazepam 2 MG/ML VIAL IV SCH (20:00)
[2024-07-29] VITALS: BP 112/38
[2024-07-29] MEDS ORDERED: SODIUM CHLORIDE 0.9% 500 ML IV SCH (06:40)
[2024-07-29] MEDS ORDERED: ATROPINE SULFATE 1% 2 ML BOTTLE SL PRN (06:40)
[2024-07-29 08:00] VITALS: BP 152/15
[2024-07-29 12:00] VITALS: BP 130/32
[2024-07-29 16:00] VITALS: BP 126/21
[2024-07-29] MEDS ORDERED: Water, Sterile 10 ML VIAL ONE (17:44)
[2024-07-29 18:34] VITALS: BP 143/53
[2024-07-29 20:00] VITALS: BP 113/30
[2024-07-30] VITALS: BP 121/25
[2024-07-30 08:00] VITALS: BP 80/36
== END 2024-07-30 10:40 | DRG 682 ==
LOC: 4E 17:10
PROVIDERS: ADMIT Internal Medicine; ATTEND Internal Medicine
DX: I12.0 Hypertensive chronic kidney disease with stage 5 chronic kidney disease or end stage renal disease (principal); N18.6 End stage renal disease; Z66 Do not resuscitate; Z79.899 Other long term (current) drug therapy; Z99.2 Dependence on renal dialysis; G40.409 Other generalized epilepsy and epileptic syndromes, not intractable, without status epilepticus; Z79.01 Long term (current) use of anticoagulants; Z79.2 Long term (current) use of antibiotics; Z88.8 Allergy status to other drugs, medicaments and biological substances; Z91.09 Other allergy status, other than to drugs and biological substances; Z51.5 Encounter for palliative care